=== PATIENT | male | born 1985 | race Caucasian/White ===

== ENCOUNTER 2021-03-17 11:09 | Inpatient (IN) | payer OTHER ==
[2021-03-17] MEDS ORDERED: Morphine 4 MG/ML VIAL ONE ×3 (12:03→23:48)
[2021-03-17] MEDS ORDERED: Ondansetron PF 4 MG/2 ML Vial ONE (12:03)
[2021-03-17 12:11] LABS: #Lymphocytes 1.6 thou/uL (1.20-3.40); #Monocytes 0.9 thou/uL (0.11-0.59); #Neutrophils 16.4 thou/uL (1.40-6.50); %Basophils 0.2 % (0.0-1.0); %Eosinophils 0.2 % (0.0-10.0); %Lymphocytes 8.5 % (21.0-51.0); %Monocytes 4.9 % (0.0-10.0); %Neutrophils 86.2 % (42.0-75.0); Hemoglobin 15.5 g/dL (14.0-18.0); Mean Corpuscular HGB CONC 33.4 g/dL (32.0-36.0); Mean Corpuscular Hemoglobin 29.8 pg (27.0-31.0); Mean Corpuscular Volume 89.3 fL (78.0-98.0); Mean Platelet Volume 8.4 fL (7.4-10.4); Platelet Count 289 thou/uL (130-400); RBC Distribution Width 12.1 % (11.5-14.5); Red Blood Cell (RBC) Count 5.21 mill/uL (4.70-6.10); White Blood Cell (WBC) Count 19.1 thou/uL (4.8-10.8)
[2021-03-17] MEDS ORDERED: Iopamidol-370 76% 500 ML 1 ML ONE (12:31)
[2021-03-17 12:32] LABS: ALT (SGPT) 24 U/L (8-55); AST (SGOT) 18 U/L (5-34); Albumin 4.2 g/dL (3.5-5.0); Alkaline Phosphatase 68 U/L (40-110); Anion Gap 14 mmol/L (10-20); BUN (Urea Nitrogen) 12 mg/dL (8.9-20.6); Bilirubin, Total 0.3 mg/dL (0.2-1.2); Calc. Creatinine Clearance 0 mL/min (70-130); Calcium 8.6 mg/dL (7.8-10.44); Carbon Dioxide 19 mmol/L (22-29); Chloride 107 mmol/L (98-107); Globulin 2.8 g/dL (2.4-3.5); Glucose 139 mg/dL (70-105); Potassium 4.1 mmol/L (3.5-5.1); Sodium 136 mmol/L (136-145)
[2021-03-17] MEDS ORDERED: Ondansetron PF 4 MG/2 ML Vial IVP PRN (13:17)
[2021-03-17] MEDS ORDERED: Dextrose 5% in Water 1,000 ML IV PRN (13:17)
[2021-03-17] MEDS ORDERED: hydrALAZINE 20 MG/ML VIAL SLOW IVP PRN (13:17)
[2021-03-17] MEDS ORDERED: Morphine 4 MG/ML VIAL SLOW IVP PRN (13:17)
[2021-03-17] MEDS ORDERED: Morphine 2 MG/ML VIAL SLOW IVP PRN (13:17)
[2021-03-17] MEDS ORDERED: Dextrose 50% Abboject 50 ML SYRINGE SLOW IVP PRN (13:17)
[2021-03-17] MEDS ORDERED: Acetaminophen/Codeine 30-300mg Tablet PO PRN (13:28)
[2021-03-17] MEDS ORDERED: Sodium Chloride 0.9% 1,000 ML IV SCH (13:30)
[2021-03-17] MEDS ORDERED: Acetaminophen 500 MG TAB PO SCH (13:30)
[2021-03-17] MEDS ORDERED: Boostrix 0.5 ML (Tdap) VIAL ONE (14:11)
[2021-03-17 14:44] LABS: Prothrombin Time 13.3 sec (12.0-14.7)
[2021-03-17 14:45] LABS: PTT 23.5 sec (22.9-36.1)
[2021-03-17 15:51] LABS: SARS-CoV-2 NAA Rapid Test Not Detected (NotDetected)
[2021-03-17] MEDS: Morphine 4 MG/ML VIAL SLOW IVP PRN ×2 (16:11→23:49)
[2021-03-17] MEDS ORDERED: Acetaminophen/Codeine 30-300mg Tablet ONE ×2 (18:09→20:33)
[2021-03-17] MEDS: Acetaminophen/Codeine 30-300mg Tablet PO PRN (18:12)
[2021-03-17] MEDS ORDERED: Acetaminophen 500 MG TAB ONE (20:10)
[2021-03-17] MEDS ORDERED: Famotidine 20 MG TAB ONE (20:10)
[2021-03-17] MEDS ORDERED: Ciprofloxacin HCL/Dexameth Otic Drops 7.5 ml Bottle ONE (20:34)
[2021-03-17] MEDS: Ciprofloxacin HCL/Dexameth Otic Drops 7.5 ml Bottle R EAR SCH (20:41)
[2021-03-17] MEDS: Famotidine/PF 20 mg/2ml Vial SLOW IVP SCH (20:41)
[2021-03-17] MEDS ORDERED: Senokot S 8.6-50 MG TAB PO SCH (21:00)
[2021-03-18] MEDS ORDERED: Acetaminophen/Codeine 30-300mg Tablet ONE ×2 (01:53→07:52)
[2021-03-18] MEDS: Acetaminophen/Codeine 30-300mg Tablet PO PRN ×3 (01:54→15:47)
[2021-03-18] MEDS ORDERED: Morphine 4 MG/ML VIAL ONE (05:29)
[2021-03-18] MEDS: Morphine 4 MG/ML VIAL SLOW IVP PRN ×2 (05:34→09:55)
[2021-03-18] MEDS: Acetaminophen 500 MG TAB PO SCH ×3 (06:15→15:51)
[2021-03-18 07:16] LABS: #Lymphocytes 1.8 thou/uL (1.20-3.40); #Monocytes 0.9 thou/uL (0.11-0.59); #Neutrophils 9.3 thou/uL (1.40-6.50); %Basophils 0.1 % (0.0-1.0); %Eosinophils 0.1 % (0.0-10.0); %Monocytes 7.4 % (0.0-10.0); %Neutrophils 77.4 % (42.0-75.0); Hemoglobin 15.3 g/dL (14.0-18.0); Mean Corpuscular HGB CONC 33.1 g/dL (32.0-36.0); Mean Corpuscular Hemoglobin 29.7 pg (27.0-31.0); Mean Corpuscular Volume 89.8 fL (78.0-98.0); Mean Platelet Volume 8.4 fL (7.4-10.4); Platelet Count 267 thou/uL (130-400); RBC Distribution Width 12.2 % (11.5-14.5); Red Blood Cell (RBC) Count 5.15 mill/uL (4.70-6.10)
[2021-03-18 07:35] LABS: Anion Gap 12 mmol/L (10-20); BUN (Urea Nitrogen) 10 mg/dL (8.9-20.6); Calc. Creatinine Clearance 0 mL/min (70-130); Calcium 8.9 mg/dL (7.8-10.44); Carbon Dioxide 25 mmol/L (22-29); Chloride 106 mmol/L (98-107); Glucose 118 mg/dL (70-105); Magnesium 1.9 mg/dL (1.6-2.6); Phosphorus 2.8 mg/dL (2.3-4.7); Potassium 4.6 mmol/L (3.5-5.1); Sodium 138 mmol/L (136-145)
[2021-03-18] MEDS ORDERED: Acetaminophen 500 MG TAB ONE (08:13)
[2021-03-18] MEDS ORDERED: Magnesium 2 GM/50 ML 2 GM in Premix Bag 1 BAG IVPB SCH (08:45)
[2021-03-18] MEDS ORDERED: PHOS-NAK 1 PKT PACK PO SCH (08:45)
[2021-03-18] MEDS ORDERED: Polyethylene Glycol 3350 17 GM Packet PO SCH (09:00)
[2021-03-18] MEDS: Gabapentin 300 MG CAP PO SCH ×2 (09:03→15:45)
[2021-03-18] MEDS: Famotidine/PF 20 mg/2ml Vial SLOW IVP SCH (09:57)
[2021-03-18] MEDS: Ciprofloxacin HCL/Dexameth Otic Drops 7.5 ml Bottle R EAR SCH (11:28)
[2021-03-18 15:46] VITALS: BP 132/81; TEMP 98.2
== END 2021-03-18 16:35 | DRG 84 ==
LOC: ERS 11:09 → ERHOLD 12:47 → SURG A 03-18 09:14
PROVIDERS: ADMIT Surgery; ATTEND Surgery
DX: S06.5X9A Traumatic subdural hemorrhage with loss of consciousness of unspecified duration, initial encounter (principal); W18.30XA Fall on same level, unspecified, initial encounter; Z23 Encounter for immunization; Z20.822 Contact with and (suspected) exposure to COVID-19; S02.119A Unspecified fracture of occiput, initial encounter for closed fracture; S02.19XA Other fracture of base of skull, initial encounter for closed fracture; S02.609A Fracture of mandible, unspecified, initial encounter for closed fracture; S06.6X9A Traumatic subarachnoid hemorrhage with loss of consciousness of unspecified duration, initial encounter; R40.2412 Glasgow coma scale score 13-15, at arrival to emergency department; H90.2 Conductive hearing loss, unspecified; Y92.142 Bathroom in prison as the place of occurrence of the external cause; H74.21 Discontinuity and dislocation of right ear ossicles
CPT/HCPCS: 36415; 70450; 70486; 70496; 70498; 71045; 72125; 80048; 80053; 83735; 84100; 85025; 85610; 85730; 90715; G0390; J0690; J2270; J2405; J3475; J7050; Q9967; S0028; U0002